=== PATIENT | female | born 1955 | race Two or more races ===

== ENCOUNTER 2023-07-08 06:11 | Inpatient (IN) | payer OTHER ==
[~2023-07-08] VITALS: Ht 154.9 cm; Wt 98.1 kg
[~2023-07-08 06:11] MED LIST: AMLO1TAB22 PO; ASPI1TAB20 PO; DICL75TA3 PO; GABA-1308 PO; METF-372 PO; TELM80TA PO
[2023-07-08] MEDS: ceFAZolin 2 GM/D5W100ml 100 ML IV ONE (06:38)
[2023-07-08] MEDS: TRANEXAMIC ACID 20 ML ONE (06:44)
[2023-07-08] MEDS: SUCCINYLCHOLINE CHLORIDE 20 MG/ML 10ML VIAL IV ONE (07:08)
[2023-07-08] MEDS ORDERED: fentaNYL CITRATE 100 MCG/2 ML VL ONE ×4 (07:15→09:25)
[2023-07-08] MEDS ORDERED: ePHEDrine SULFATE 50 MG/ML AMP ONE (08:13)
[2023-07-08] MEDS ORDERED: PHENYLEPHRINE HCL 10 MG/ML VL ONE (08:13)
[2023-07-08] MEDS: LIDOCAINE W/ EPINEPHRINE 1% 20ML VIAL ONE (08:33)
[2023-07-08] MEDS ORDERED: PROPOFOL 10 MG/ML 20 ML IV ONE (10:08)
[2023-07-08] MEDS ORDERED: MORPHINE SULFATE INJ 2 MG/ml SYRG IV PRN (10:45)
[2023-07-08] MEDS ORDERED: NITROGLYCERIN 0.4 MG SL TAB SL PRN (10:45)
[2023-07-08] MEDS ORDERED: ONDANSETRON HCL 4 MG/2 ML VIAL IV PRN ×2 (10:45→11:30)
[2023-07-08] MEDS ORDERED: D5W/SOD CHLO 0.9% 1,000 ML IV SCH (10:45)
[2023-07-08 11:12] VITALS: RESP 10; O2SAT 95
[2023-07-08] MEDS ORDERED: MEPERIDINE HCL (25 MG/ML) 1ML VIAL IV PRN (11:30)
[2023-07-08] MEDS ORDERED: HYDROmorphone HCL 2 MG/ML VL/or syr IV PRN (11:30)
[2023-07-08] MEDS: CYCLOBENZAPRINE HCL 10 MG TAB PO SCH (11:45)
[2023-07-08] MEDS: HYDROmorphone HCL 2 MG/ML VL/or syr ONE (11:45)
[2023-07-08 15:20] VITALS: PULSE 99; RESP 17; O2SAT 98
[2023-07-08] MEDS ORDERED: DEXTROSE (50%) 50ML SYRG IV PRN (16:15)
[2023-07-08] MEDS ORDERED: TIZA4CAP PO (16:31)
[2023-07-08] MEDS ORDERED: APOA10CA PO (16:31)
[2023-07-08] MEDS ORDERED: CHOL20TA PO (16:31)
[2023-07-08 17:00] VITALS: BP 127/72; PULSE 99; RESP 17; TEMP 98.2; O2SAT 98
[2023-07-08] MEDS: MORPHINE SULFATE INJ 2 MG/ml SYRG IV PRN (17:33)
[2023-07-08] MEDS: ceFAZolin 1GM/50ML 50 ML IV SCH (18:31)
[2023-07-08 20:00] VITALS: PULSE 104; RESP 17; O2SAT 95
[2023-07-08] MEDS: ACCU-CHEK COMFORT CURVE STRIP VI SCH (20:00)
[2023-07-08] MEDS: InsuLIN REG 1unit/0.01ml Soln (100units/ml) SC SCH (20:57)
[2023-07-08 22:00] VITALS: BP 129/74; PULSE 107; RESP 18; TEMP 98.3; O2SAT 97
[2023-07-08] MEDS: DOCUSATE SOD 100 MG CAP PO SCH (22:07)
[2023-07-08] MEDS: HYDROcodone-ACET 10/325MG TAB PO PRN (23:56)
[2023-07-09] VITALS (7 sets, daily range): BP systolic 106–122; BP diastolic 48–65; PULSE 82–92; RESP 16–18; TEMP 98.2–99.4; O2SAT 94–98
[2023-07-09] MEDS: SODIUM CHLORIDE 0.9% 1,000 ML IV SCH (04:20)
[2023-07-09] MEDS ORDERED: TELM1TAB35 PO (17:24)
[2023-07-09] MEDS ORDERED: DICL50TA2 PO (17:26)
[2023-07-09] MEDS ORDERED: TIZA10TA PO (17:27)
[2023-07-10] VITALS (8 sets, daily range): BP systolic 127–142; BP diastolic 63–81; PULSE 81–95; RESP 16–20; TEMP 98.4–100.9; O2SAT 92–99
[2023-07-10 16:17] LABS: Basophils # (auto) 0 10 ^3/uL (0-0.2); Basophils % (auto) 0.3 % (0.0-2.0); Eosinophils # (auto) 0.1 10 ^3/uL (0-0.8); Eosinophils % (auto) 1.2 % (0.0-7.0); Hematocrit 31.7 % (36.0-46.0); Hemoglobin 10.4 g/dL (12.2-16.2); Lymphocytes # (auto) 1.3 10 ^3/uL (0.4-5.4); Lymphocytes % (auto) 14.7 % (10.0-50.0); Mean Corpuscular Hemoglobin 30.2 pg (28.0-32.0); Mean Corpuscular Hgb Conc. 32.9 g/dL (32.0-36.0); Mean Corpuscular Volume 91.7 fL (80.0-100.0); Monocytes # (auto) 0.6 10 ^3/uL (0-1.3); Monocytes % (auto) 6.5 % (0.0-12.0); Neutrophils # (auto) 6.6 10 ^3/uL (1.6-8.6); Neutrophils % (auto) 77.3 % (37.0-80.0); Red Blood Cells 3.45 10^6/uL (4.0-5.20); Red Cell Distribution Width 13.3 % (11.8-14.3); White Blood Cell 8.5 10^3/uL (4.4-10.8)
[2023-07-10 16:31] LABS: Chloride 106 mmol/L (98-107); Potassium 4.3 mmol/L (3.5-5.1); Sodium 139 mmol/L (136-145)
[2023-07-10 16:32] LABS: Anion Gap 4 (5-15); Calcium 8.3 mg/dL (8.7-10.4); Carbon Dioxide 29 mmol/L (20-30)
[2023-07-10 16:37] LABS: BUN/Creatinine Ratio 8.5 (10.0-20.0); Blood Urea Nitrogen 6 mg/dL (9-23); Glucose 165 mg/dL (74-106); Magnesium 1.6 mg/dL (1.6-2.6)
[2023-07-10] MEDS: ACETAMINOPHEN 325 MG TAB PO PRN (17:00)
[2023-07-11] VITALS (8 sets, daily range): BP systolic 134–150; BP diastolic 58–77; PULSE 90–106; RESP 16–20; TEMP 98.4–100.1; O2SAT 96–98
[2023-07-12 08:00] VITALS: PULSE 84
[2023-07-12 09:00] VITALS: BP 133/71; PULSE 81; RESP 21; TEMP 98.7; O2SAT 96
[2023-07-12 17:00] VITALS: BP 126/94; PULSE 89; RESP 20; TEMP 98.6; O2SAT 100
[2023-07-12] MEDS: LACTULOSE 20Gm/30ML SOLN PO ONE (18:17)
[2023-07-12 20:00] VITALS: BP 137/73; PULSE 101; PULSE 90; RESP 18; TEMP 99.5; O2SAT 94
[2023-07-12] MEDS: SENNA 8.6 MG TAB PO SCH (21:52)
[2023-07-12 22:00] VITALS: BP 137/73; PULSE 90; RESP 18; TEMP 99.5; O2SAT 94
[2023-07-13] VITALS (7 sets, daily range): BP systolic 132–148; BP diastolic 57–66; PULSE 88–104; RESP 15–20; TEMP 97.9–99.8; O2SAT 93–95
[2023-07-14 04:41] VITALS: BP 125/49; PULSE 85; RESP 18; TEMP 98.5; O2SAT 18
[2023-07-14 08:00] VITALS: PULSE 87
[2023-07-14 09:00] VITALS: BP 134/46; PULSE 84; RESP 17; TEMP 98.8; O2SAT 94
[2023-07-14 13:00] VITALS: BP 148/70; PULSE 83; RESP 17; TEMP 98.3; O2SAT 96
[2023-07-14 17:00] VITALS: BP 114/66; PULSE 81; RESP 18; TEMP 98.4; O2SAT 95
[2023-07-14] MEDS ORDERED: HYDR-4902 PO (17:17)
[2023-07-14] MEDS ORDERED: SENN-58 PO (17:17)
== END 2023-07-14 18:45 | disposition home health service (06) | DRG 460 ==
LOC: SUR 06:11 → TELE 10:39 → TELE-E-ADS 15:40 → TELE-EAST 19:45
PROVIDERS: ADMIT Orthopaedic Surgery; ATTEND Internal Medicine
PROC: 01NB0ZZ Release Lumbar Nerve, Open Approach (ICD-10-PCS; 2023-07-08)
PROC: 4A11X4G Monitoring of Peripheral Nervous Electrical Activity, Intraoperative, External Approach (ICD-10-PCS; 2023-07-08)
PROC: 00NY0ZZ Release Lumbar Spinal Cord, Open Approach (ICD-10-PCS; 2023-07-08)
PROC: 0SG107J Fusion of 2 or more Lumbar Vertebral Joints with Autologous Tissue Substitute, Posterior Approach, Anterior Column, Open Approach (ICD-10-PCS; 2023-07-08)
PROC: 0SG00KJ Fusion of Lumbar Vertebral Joint with Nonautologous Tissue Substitute, Posterior Approach, Anterior Column, Open Approach (ICD-10-PCS; 2023-07-08)
PROC: 0ST20ZZ Resection of Lumbar Vertebral Disc, Open Approach (ICD-10-PCS; 2023-07-08)
PROC: 0SG00AJ Fusion of Lumbar Vertebral Joint with Interbody Fusion Device, Posterior Approach, Anterior Column, Open Approach (ICD-10-PCS; principal; 2023-07-08 07:48)
DX: M48.061 Spinal stenosis, lumbar region without neurogenic claudication (principal); M96.1 Postlaminectomy syndrome, not elsewhere classified; E11.65 Type 2 diabetes mellitus with hyperglycemia; E78.5 Hyperlipidemia, unspecified; I10 Essential (primary) hypertension; Z79.4 Long term (current) use of insulin; E11.42 Type 2 diabetes mellitus with diabetic polyneuropathy; K59.00 Constipation, unspecified; M51.16 Intervertebral disc disorders with radiculopathy, lumbar region
CPT/HCPCS: 36415; 72100; 76000; 80048; 82962; 83735; 85025; 86850; 86900; 86901; 87040; 97110; 97116; 97163; 97530; G0378; J0330; J1815; J2704